=== PATIENT | male | born 1985 | race Caucasian/White ===

== ENCOUNTER 2019-10-13 12:41 | Emergency (ER) | payer BC ==
--- NOTE | 2019-10-13 12:54 | PDOC ---
History of Present Illness - General Chief Complaint: Weakness Stated Complaint: FELT WEAK AT WORK POSSIBLE DEHYDRATION Time Seen by Provider: 10/13/19 12:54 - History of Present Illness Initial Comments: 10/13/19 13:42 Chief complaint: Generalized weakness HPI: Patient was exiting his car after about an hours drive from [place] to [facility], where he works, and felt sudden bilateral and symmetric weakness in both legs. At the same time he noted on his watch that his heart rate was in the 150 range. He became anxious and agitated, his symptoms persisted for approximately 1/2-hour, then resolved. He is completely asymptomatic now. He sat in his car and drank some Gatorade, which seemed to result in his impr ovement. Review of systems: Yesterday worked all day then vigorously worked out at night in the heat. Feels he may not have been adequately hydrated. Although he felt his heart pounding, he had no sensation of an irregular heartbeat, chest pain, shortness of breath, lightheadedness or dizziness, nausea, or diaphoresis. No abdominal pain. No diarrhea. No visual or focal neurologic symptoms or unsteadiness of gait. Remainder of systems reviewed and found to be negative Past medical history: Mild asthma, never requiring intubation, no recent steroids, no prior heart problems. Social history: Works as a fitness counselor, denies tobacco, occasional social alcohol, none recently, denies nonprescription drugs Family history: Reviewed and noncontributory including early coronary artery disease, CVA, PVD, metabolic disease including diabetes, and cancer Physical exam: Alert and oriented well-developed well-nourished no acute distress cheerful and cooperative Afebrile, vital signs normal PERRLA, fundi benign, ENT clear. Mucous membranes moist Neck supple without bruit mass or nodes Lungs clear with full breath sounds bilaterally, no wheezes rales or rhonchi. No tachypnea or dyspnea CV regular without murmur rub or gallop pulses full and symmetric no JVD or edema no bruits rate 66 and regular Abdomen soft nontender without mass organomegaly Neurological C2 to 12 intact. Strength full and symmetric. No focal sensory or motor deficits. Cerebellar function intact. Gait stable and unimpaired Extremities no CCE Skin clear, no rash, adequate turgor and wet mucous membranes Impression: Brief episode of bilateral leg weakness, after a prolonged automobile ride, and then a short episode of rapid heartbeat. This was all accompanied by anxiety and agitation due to his initial symptoms. All symptoms have now resolved. Dehydration from vigorous physical activity in the heat yesterday is a possibility, as well as anxiety/hyperventilation. No real risk factors for cardiac disease, and no suggestion of such in the history or physical findings. Plan: EKG and enzymes, CBC and chemistries, hydration and observation. Further evaluation depending on results. Past History - Medical History Allergies/Adverse Reactions: Allergies Allergy/AdvReac Type Severity Reaction Status Date / Time No Known Allergies Allergy Unverified 10/13/19 12:49 Home Medications: Ambulatory Orders Albuterol Sulfate Inhaler - [Ventolin Hfa Inhaler -] 1 puff IH PRN 10/13/19 Montelukast Sodium [Singulair] 1 tab PO DAILY 10/13/19 ED Treatment Course - LABORATORY CBC & Chemistry Diagram: 10/13/19 13:26 10/13/19 13:26 Medical Decision Making - Medical Decision Making 10/13/19 13:56 EKG shows normal sinus rhythm at a rate of 66/min. Normal axes and intervals. Minimal J-point elevation in a pattern that appears to be due to to early repolarization. No other ST-T wave changes. No old EKG for comparison 10/13/19 13:59 CBC, chemistries, including CK and troponin, no significant abnormalities. Creatinine and BUN 1.2 and 15 respectively. No sign of dehydration or electrolyte abnormality. Most likely symptoms or due to anxiety/hyperventilation. Clinically and hemodynamically stable. Asymptomatic at discharge with father to follow-up if symptoms recur or additional symptoms develop. 10/13/19 14:00 10/13/19 14:21 Discharge - Discharge Information Problems reviewed: Yes Clinical Impression/Diagnosis: Dehydration Condition: Improved Disposition: HOME - Admission No - Follow up/Referral - Patient Discharge Instructions Patient Printed Discharge Instructions: DI for Dehydration -- Adult - Post Discharge Activity Work/Back to School Note: Back to Work
[2019-10-13 13:06] VITALS: BP 119/72; PULSE 68; TEMP 98; BMI 22.7
[2019-10-13 13:46] LABS: BASO % 1.8 % (0-2.0); EOS % 1.8 % (0-4.5); HEMATOCRIT 41.4 % (35.4-49); HEMOGLOBIN 13.8 GM/dl (11.7-16.9); LYMPH % 16.2 % (8-40); MCH 29.9 pg (25.7-33.7); MCHC 33.4 g/dl (32.0-35.9); MEAN CELL VOLUME 89.5 fl (80-96); MEAN PLT VOLUME 9.6 fl (7.5-11.1); MONO % 5.2 % (3.8-10.2); PLATELET COUNT 145 K/MM3 (134-434); RBC 4.62 M/mm3 (4.00-5.60); WHITE BLOOD COUNT 6.8 K/mm3 (4.0-10.8)
[2019-10-13] MEDS ORDERED: SODIUM CHLORIDE 1,000 ML IV STA (13:50)
[2019-10-13 13:51] LABS: ALBUMIN 4.2 g/dl (3.4-5.0); BILIRUBIN,TOTAL 0.6 mg/dl (0.2-1); CALCIUM 9.3 mg/dl (8.5-10); CREATININE 1.2 mg/dl (0.55-1.3); POTASSIUM 4.2 mmol/L (3.5-5.1); TOT PROT 6.8 g/dl (6.4-8.2)
--- NOTE | 2019-10-14 12:14 | EKG ---
Test Reason : Blood Pressure : / mmHG Vent. Rate : 066 BPM Atrial Rate : 066 BPM P-R Int : 148 ms QRS Dur : 078 ms QT Int : 352 ms P-R-T Axes : 053 069 061 degrees QTc Int : 369 ms NORMAL SINUS RHYTHM POSSIBLE LEFT ATRIAL ENLARGEMENT BORDERLINE ECG NO PREVIOUS ECGS AVAILABLE Confirmed by RACIEL BULLOCK, BONNIE ([id number]) on 10/14/2019 12:13:39 PM Referred By: JUDITH BOSS Confirmed By:BONNIE SCHRADER MD
== END 2019-10-13 14:26 | disposition home or self-care (01) ==
LOC: SUPCPDRO 12:41 → FER 12:41
PROC: 3E0337Z Introduction of Electrolytic and Water Balance Substance into Peripheral Vein, Percutaneous Approach (ICD-10-PCS; principal; 2019-10-13)
DX: E86.0 Dehydration (principal)
CPT/HCPCS: 36415; 80053; 82550; 82553; 84484; 85025; 93005; 99284-25